=== PATIENT | female | born 1950 | race Asian ===

== ENCOUNTER 2021-05-19 04:23 | Day surgery (SDC) | payer OTHER ==
[2021-05-18 14:11] VITALS: BMI 25.6
[2021-05-19] MEDS ORDERED: PROPOFOL 20 ML ONE ×4 (07:35→08:51)
[2021-05-19] MEDS ORDERED: SUCCINYLCHOLINE CHLORIDE 200 MG/10 ML SYRINGE ONE (07:36)
[2021-05-19] MEDS ORDERED: MIDAZOLAM HCL 2 MG/2 ML SINGLE DOSE VIAL ONE (07:36)
[2021-05-19] MEDS ORDERED: IBUPROFEN 800 MG/8 ML IJ IVPB PRN (07:48)
[2021-05-19] MEDS ORDERED: oxyCODONE HCL 5 MG TABLET PO PRN (07:48)
[2021-05-19] MEDS ORDERED: ONDANSETRON 4 MG/2 ML VIAL IVPUSH PRN (07:48)
[2021-05-19] MEDS ORDERED: IBUPROFEN 600 MG TABLET (FP) PO PRN (07:48)
[2021-05-19] MEDS ORDERED: ELECTROLYTE-148 SOLN 1,000 ML IV SCH (08:00)
[2021-05-19] MEDS ORDERED: LACTATED RINGERS SOLUTION 1,000 ML IV SCH (10:45)
[2021-05-19 11:33] VITALS: TEMP 97.5
[2021-05-19] MEDS ORDERED: ONDANSETRON 4 MG/2 ML VIAL ONE (11:41)
[2021-05-19 14:41] VITALS: BP 149/51; PULSE 90
== END 2021-05-19 14:00 | disposition home or self-care (01) ==
LOC: JASU-SURG 04:23
PROVIDERS: ATTEND Obstetrics & Gynecology
PROC: 0UBC8ZX Excision of Cervix, Via Natural or Artificial Opening Endoscopic, Diagnostic (ICD-10-PCS; principal; 2021-05-19 07:30)
PROC: 0UB98ZX Excision of Uterus, Via Natural or Artificial Opening Endoscopic, Diagnostic (ICD-10-PCS; 2021-05-19 07:30)
PROC: 0UDB8ZX Extraction of Endometrium, Via Natural or Artificial Opening Endoscopic, Diagnostic (ICD-10-PCS; 2021-05-19 07:30)
DX: N84.0 Polyp of corpus uteri (principal); N84.1 Polyp of cervix uteri
CPT/HCPCS: 88305-TC; 94760

== ENCOUNTER 2022-07-30 07:53 | Day surgery (SDC) | payer OTHER ==
[2022-07-29 15:48] VITALS: BMI 24.8
[2022-07-30] MEDS ORDERED: PROPOFOL 40 ML ONE (08:01)
[2022-07-30] MEDS ORDERED: LIDOCAINE HCL/PF 2% SDV 5ML VIAL ONE (08:01)
[2022-07-30 09:49] VITALS: TEMP 97.5
[2022-07-30 10:12] VITALS: BP 121/67; PULSE 56; RESP 16
== END 2022-07-30 10:46 | disposition home or self-care (01) ==
LOC: FASU-ENDO 07:53
PROVIDERS: ATTEND Internal Medicine Gastroenterology
PROC: 0DB68ZX Excision of Stomach, Via Natural or Artificial Opening Endoscopic, Diagnostic (ICD-10-PCS; 2022-07-30)
PROC: 0DB48ZX Excision of Esophagogastric Junction, Via Natural or Artificial Opening Endoscopic, Diagnostic (ICD-10-PCS; 2022-07-30)
PROC: 0DB98ZX Excision of Duodenum, Via Natural or Artificial Opening Endoscopic, Diagnostic (ICD-10-PCS; principal; 2022-07-30 09:31)
DX: K31.7 Polyp of stomach and duodenum (principal); K29.50 Unspecified chronic gastritis without bleeding; K22.89 Other specified disease of esophagus
CPT/HCPCS: 88305-TC; 88342-TC